=== PATIENT | male | born 1960 ===

== ENCOUNTER 2016-08-28 15:43 | Emergency (ER) | payer OTHER ==
[~2016-08-28] VITALS: Ht 177.8 cm; Wt 72.0 kg
[~2016-08-28 15:43] MED LIST: SODIUM CHLORIDE 0.9% 1000ML 1,000 ML IV SCH
[2016-08-28] MEDS ORDERED: SUCCINYLCHOLINE CHLORIDE 20 MG/ML 10 ML VIAL IV ONE (15:44)
[2016-08-28] MEDS ORDERED: SODIUM CHLORIDE 0.9% INJ 10 ML VIAL IV ONE (15:44)
[2016-08-28] MEDS ORDERED: LORAZEPAM 2 MG/ML 1 ML VIAL IV ONE (15:44)
[2016-08-28] MEDS ORDERED: VECURONIUM BROMIDE 10 MG VIAL IV ONE (15:44)
[2016-08-28] MEDS ORDERED: ETOMIDATE 2 MG/ML 20 ML VIAL IV ONE (15:44)
[2016-08-28] MEDS ORDERED: ONDANSETRON INJ 2 MG/ML 2 ML VIAL ONE (15:50)
[2016-08-28] MEDS ORDERED: RAPID SEQUENCE INDUCTION BAG ONE (15:51)
[2016-08-28 16:00] VITALS: O2SAT 99; Ht 177.8 cm; Wt 72.0 kg
[2016-08-28 16:05] LABS: ISTAT CREATININE 1.5 mg/dl (0.6-1.3); ISTAT HEMOGLOBIN 13.6 g/dl (14.0-18.0); ISTAT IONIZED CALCIUM 1.3 mmol/l (1.12-1.32)
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
[2016-08-28 16:15] LABS: BASO % 0.3 %; BASO ABS # 0.03 K/uL (0-0.2); COMPLETE YES; EOS % 3.1 %; HEMATOCRIT 38.1 % (42-52); IG% 0.3 %; LYMPH ABS # 1.75 K/uL (1.2-3.4); MEAN CELL VOLUME 86.6 fL (80-100); MEAN CORPUSCULAR HEMOGLOBIN 28.4 pg (25-34); MEAN CORPUSCULAR HGB CONC 32.8 g/dl (32-36); MONO % 8.6 %; NEUT % 68.7 %; PLATELET COUNT 325 K/uL (130-400); WHITE BLOOD COUNT 9.21 K/uL (4.8-10.8)
[2016-08-28 16:22] LABS: BLOOD UREA NITROGEN 23 mg/dl (7-18); BUN/CREATININE RATIO 13.7 (10-20); CALCIUM 8.8 mg/dl (8.5-10.1); CARBON DIOXIDE 26 mmol/L (21-32); CHLORIDE 104 mmol/L (98-107); GLUCOSE 242 mg/dl (70-99); POTASSIUM 4.9 mmol/L (3.5-5.1); SODIUM 140 mmol/L (136-145)
[2016-08-28 16:26] LABS: CKMB/CK RATIO 1.1 (0-3.0)
[2016-08-28] MEDS ORDERED: MAGNESIUM SULFATE 1GM / D5W 1 GM BAG IV STA (16:31)
[2016-08-28 16:33] LABS: PARTIAL THROMBOPLASTIN RATIO 0.9; PROTHROMBIN TIME (PATIENT) 11.1 SECONDS (9.0-12.0)
[2016-08-28] MEDS ORDERED: RECOMBINANT IV SCH ×2 (16:50→16:51)
[2016-08-28] MEDS ORDERED: ALTEPLASE IV SCH ×2 (16:50→16:51)
[2016-08-28] MEDS ORDERED: SET 2260-0500 IV ONE (16:51)
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
[2016-08-28 17:03] LABS: BENZODIAZEPINE, URINE NEG (NEG); COCAINE,URINE NEG (NEG); PHENCYCLIDINE, URINE NEG (NEG)
[2016-08-28] MEDS ORDERED: OPTIRAY 320 IV PRN (17:15)
[2016-08-28] MEDS ORDERED: LORAZEPAM 2 MG/ML 1 ML VIAL ONE (17:16)
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
[2016-08-28] MEDS ORDERED: NURSING VERBAL MED ORDER ONE (17:30)
[2016-08-28 17:45] VITALS: TEMP 35.1
[2016-08-28] MEDS ORDERED: HydrALAZINE HCL 20 MG/ML VIAL ONE (17:48)
[2016-08-28 17:52] VITALS: BP 130/82; PULSE 70; O2SAT 100
--- NOTE | 2016-08-28 18:12 | DIAGNOSTIC IMAGING REPORT ---
CT ANGIOGRAM OF THE BRAIN; CT ANGIOGRAM OF THE NECK CLINICAL HISTORY: Stroke. COMPARISON STUDY: Unenhanced CT scan of the brain dated 08/28/2016. TECHNIQUE: Following the IV administration of 92 of Optiray 320, CT angiogram of the head and neck was performed from the aortic arch to the vertex. Images are reviewed in the axial, sagittal, and coronal planes. 3-D MIPS images are created and assessed. IV contrast was administered without complication. All measurements were calculated based on NASCET criteria. CT DOSE: 1606.54 mGycm FINDINGS: Brain parenchyma: A chronic infarct is again seen in the right parietal lobe with suspected laminar necrosis. A chronic lacunar infarct is also seen in the right cerebellar hemisphere. There is diffuse loss of crystal-white matter truncation throughout the right MCA territory consistent with a large evolving hemispheric infarct. This involves the right lentiform nucleus and the right caudate head. There is only mild edema with effacement of the right-sided cortical sulci. No midline shift is identified. There is no evidence of hemorrhage. There is no evidence of enhancing mass lesion on the angiogram phase images. The ventricles are normal in configuration. No extra-axial fluid collection is seen. Thoracic aorta: There is mild atherosclerotic calcification of the thoracic aorta. Visualized portions of the thoracic aorta are normal in caliber. The aortic arch demonstrates standard 3-vessel anatomy. Subclavian arteries: Widely patent bilaterally. Right carotid arterial system: The right common carotid artery is widely patent, as is the right external carotid artery. 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 Left carotid arterial system: The left common carotid artery is widely patent, as are the left internal and external carotid arteries. Vertebral arteries: The vertebral arteries in the neck are patent bilaterally noting left-sided dominance. Intracranial vasculature: The right internal carotid artery is thrombosed at the skull base to the [place]. The proximal two thirds of the right A1 segment are occluded. The distal A1 segment is opacified, likely via retrograde flow. The right middle cerebral artery is thrombosed. There is no flow identified in the majority of the right middle cerebral artery branches. A few anterior branches are opacified likely via collateral flow. The left internal carotid artery at the skull base is widely patent. There is mild atherosclerotic irregularity seen in the left cavernous carotid region. The anterior cerebral arteries and the left middle cerebral artery are patent. The vertebrobasilar system and posterior cerebral arteries are patent at the skull base. No aneurysm is identified. Jugular veins: Widely patent bilaterally. Dural sinuses: Clear as visualized. Lung apices: Partially visualized upper lobe lung parenchyma appears clear. Layering secretions are present within the mainstem bronchi bilaterally. The tip of the endotracheal tube is located at the deuce. Soft tissues: Enteric and endotracheal tubes are identified. There is fluid seen layering within the pharynx with mild pharyngeal edema. The salivary and thyroid glands are normal in appearance. No cervical lymphadenopathy is seen. A cardiac pacemaker is partially visualized in the left upper chest. Skeletal structures: The skeletal structures appear osteopenic. The calvarium appears intact. The cervical spine is within normal limits. Dentition: Numerous dental caries are identified. There are large maxillary and mandibular periapical lucencies. Marked cortical breakthrough is seen involving the right central and lateral mandibular incisors. Sinuses and mastoids: There is trace mucosal thickening within the ethmoid and maxillary sinuses. Trace fluid is noted within both maxillary antra. The mastoid air cells are well pneumatized. IMPRESSION: 1. Findings are consistent with a large evolving right MCA territory infarct. There is only mild edema with effacement of the adjacent cortical sulci. No midline shift is seen. 2. There is no evidence of hemorrhage or enhancing mass on this angiographic phase examination. 3. 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 There is also thrombosis of the right middle cerebral artery. 4. The left carotid arterial system and the vertebral arteries in the neck are widely patent. 5. The intracranial left internal carotid artery, the left middle cerebral artery, the anterior cerebral arteries, as well as the vertebrobasilar system and posterior cerebral arteries are patent. 6. Advanced periodontal disease with numerous dental caries, periapical lucencies, and foci of cortical breakthrough. Follow-up with dentistry is recommended. 7. The endotracheal tube terminates at the deuce. Consider repositioning. 8. Layering fluid is noted within the pharynx and there is mild hyperemia of the pharyngeal soft tissues. This is likely secondary to endotracheal tube placement. 9. Additional findings as above. Electronically signed by: Niels Ribera M.D. 08/28/2016 6:10 PM Dictated Date/Time: 08/28/2016 5:53 PM
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
== END 2016-08-28 17:54 | disposition short-term general hospital (02) ==
LOC: C.EDB 15:43
DX: I63.9 Cerebral infarction, unspecified (principal); R41.82 Altered mental status, unspecified